=== PATIENT | male | born 1970 | race Caucasian/White ===

== ENCOUNTER 2023-08-18 16:25 | Emergency (ER) | payer SELFPAY ==
[2023-08-18] MEDS ORDERED: Sodium Chloride 0.9% 1,000 ML IV ONE (16:29)
[2023-08-18] MEDS ORDERED: Morphine 4 MG/ML Syringe IVPUSH ONE (16:29)
[2023-08-18 17:08] LABS: BASOPHILS PERCENT AUTO 0.2 % (0.0-1.5); EOSINOPHILS ABSOLUTE AUTO 0.2 K/uL (0.0-0.7); EOSINOPHILS PERCENT AUTO 2.8 % (0.0-7.0); HEMATOCRIT 42.2 % (38.0-50.0); HEMOGLOBIN 14.9 g/dL (13.0-17.0); MEAN CORPUSCULAR HEMOGLOBIN 31.6 pg (27.0-32.0); MEAN CORPUSCULAR HGB CONC 35.3 g/dL (31.0-37.0); MEAN CORPUSCULAR VOLUME 89.4 fL (80.0-98.0); MONOCYTES ABSOLUTE AUTO 0.8 K/uL (0.0-0.8); NEUTROPHILS ABSOLUTE AUTO 3.4 K/uL (1.4-5.7); NRBC ABSOLUTE 0 K/uL; PLATELET COUNT,PLT 271 K/uL (150-400); RED BLOOD CELL COUNT 4.72 M/uL (4.50-5.90); WHITE BLOOD CELL COUNT,WBC 6.32 K/uL (4.0-11.0)
[2023-08-18] MEDS ORDERED: HYDROmorphone 1 MG/ML Syringe IVPUSH ONE (17:12)
[2023-08-18] MEDS ORDERED: Ondansetron 4 MG/2 ML SDV IVPUSH ONE (17:16)
[2023-08-18 17:46] LABS: A/G RATIO 1.1 (0.9-1.6); ALBUMIN 3.9 g/dL (3.4-5.0); BILIRUBIN TOTAL 0.6 mg/dL (0.2-1.0); CALCIUM 8.9 mg/dL (8.5-10.1); CARBON DIOXIDE,CO2 24.6 mmol/L (21.0-32.0); CREATININE 0.9 mg/dL (0.8-1.3); EST CRCL DRUG DOSING (CG) 83.69 mL/min; POTASSIUM,K 3.9 mmol/L (3.5-5.1); PROTEIN TOTAL,TP 7.5 g/dL (6.4-8.2)
[2023-08-18 17:49] LABS: LACTIC ACID 1.2 mmol/L (0.4-2.0)
[2023-08-18] MEDS ORDERED: Ketorolac 30 MG/ML SDV IVPUSH ONE (18:13)
[2023-08-18] MEDS ORDERED: Iopamidol 755 MG/ML 500 ML Multipack Bottle IVPUSH STA (18:15)
[2023-08-18] MEDS ORDERED: droPERidol 5 MG/2 ML SDV IVPUSH ONE (18:55)
== END 2023-08-18 20:45 | disposition home or self-care (01) ==
LOC: MW.ED 16:25
DX: R19.7 Diarrhea, unspecified (principal); R10.84 Generalized abdominal pain; Z88.8 Allergy status to other drugs, medicaments and biological substances; Z79.899 Other long term (current) drug therapy
CPT/HCPCS: 36415; 74177; 80053; 83605; 83690; 85025; 96361; 96374; 96375; 99284; J1170; J1790; J1885; J2270; J2405; J7030; Q9967